=== PATIENT | female | born 1970 | race African-American/Black ===

== ENCOUNTER 2016-08-25 22:32 | Emergency (ER) | payer BC, OTHER ==
[~2016-08-25] VITALS: Ht 177.8 cm; Wt 125.0 kg
[~2016-08-25 22:32] MED LIST: Z.0.NO CURRENT MEDS
[2016-08-25 22:34] VITALS: BP 185/90; PULSE 71; RESP 18; TEMP 97.8; O2SAT 99
[2016-08-25] MEDS ORDERED: ULTR50TA5 PO (23:10)
[2016-08-25] MEDS ORDERED: ROBA750T PO (23:10)
[2016-08-25] MEDS ORDERED: DICL75TA PO (23:10)
--- NOTE | 2016-08-25 23:18 | PD ---
HPI Chief Complaint: Back/ Neck Pain or Injury Time Seen by Provider: 23:10 Travel History International Travel<30 days: No Contact w/Intl Traveler<30days: No Traveled to known affect area: No History of Present Illness HPI 46-year-old black female presents to emergency department with complains of lower back pain with left sciatica the past month. She states that she has had this in the past but is been more intense. She was seen by her doctor initially at the time of the pain. She states that she was given 2 injections and prescriptions for pain medications and Neurontin. She was given a two-week trial of physical therapy which has not helped her pain. She had talked to her doctor and he advised her that she may need to get an MRI. The patient presents to the ER because of persistent pain. She states the pain radiates from her left lower back into her left leg into the knee as well as the foot. It's worse with bending and movement. Some relief with remaining still. She denies any acute bowel or bladder changes. She states the pain is moderate but can be more severe with certain movements such as bending or standing. No palliative activity. PFSH Past Medical History Narrative Medical Back pain with sciatica Cardiovascular Problems: No Diabetes: No Diminished Hearing: No Tetanus Vaccination: < 5 Years ?: Not LMP: TUBAL Tubal Ligation: Yes Past Surgical History Narrative Surgical tUBAL LIGATION Social History Alcohol Use: No Tobacco Use: No Substance Use: No Allergies-Medications (Allergen,Severity, Reaction): Coded Allergies: No Known Allergies (Verified , 08/25/16) Reported Meds & Prescriptions Reported Meds & Active Scripts Active Reported No Current Meds (Miscellaneous Medication) Misc Review of Systems Except as stated in HPI: all other systems reviewed are Neg General / Constitutional: No: Fever, Chills Eyes: No: Diploplia, Blurred Vision HENT: No: Headaches, Vertigo Cardiovascular: No: Chest Pain or Discomfort, Palpitations Respiratory: No: Cough, Shortness of Breath Gastrointestinal: No: Nausea, Vomiting Genitourinary: No: Urgency, Dysuria Musculoskeletal: Positive: Arthralgias, Limited ROM, Pain, No: Weakness Skin: No Rash Neurologic: Positive: Paresthesia (into the left leg), No: Weakness Physical Exam Narrative GENERAL: Well-developed, well-nourished in no apparent distress. Nontoxic appearing. HEAD: Normocephalic, atraumatic. EYES: Pupils equal round and reactive. Extraocular motions intact. No scleral icterus. No injection or drainage. ENT: Nose clear. Throat without erythema, tonsillar hypertrophy or exudate. Uvula midline. Airway patent. NECK: Trachea midline. Supple, nontender, moves head freely. No central bony tenderness or spasm. CARDIOVASCULAR: Regular rate and rhythm without murmurs, gallops, or rubs. RESPIRATORY: Clear to auscultation. Breath sounds equal bilaterally. No wheezes , rales, or rhonchi. GASTROINTESTINAL: Abdomen soft, non-tender, nondistended. No hepato-splenomegaly , or palpable masses. No guarding. EXTREMITIES: No clubbing, cyanosis, or edema. No joint tenderness. BACK: No central bony tenderness without deformity. No flank tenderness. Positive straight leg raise on the left at 70. No saddle anesthesia. Tenderness in the left lower lumbar spine. Good distal pulses. Intact gross sensation. NEUROLOGICAL: Awake, alert and oriented x 3 .Cranial nerves grossly intact. Motor and sensory grossly within normal limits. Normal speech. Data Data Last Documented VS Vital Signs Date Time Temp Pulse Resp B/P Pulse Ox O2 Delivery O2 Flow Rate FiO2 08/25/16 22:34 97.8 71 18 185/90 99 MDM Medical Decision Making Medical Screen Exam Complete: Yes Emergency Medical Condition: Yes Medical Record Reviewed: Yes Differential Diagnosis MDM: High Differential diagnoses: AAA,Fracture, sprain, strain, HNP, nerve or vascular injury, epidural abscess, pilonidal cyst, pyelonephritis, UTI, nephrolithiasis, ureterolithiasis Narrative Course Patient's given Lortab 5 mg and Motrin 800 mg by mouth. This is back pain with sciatica Diagnosis Primary Impression: Back pain with left-sided sciatica Patient Instructions: Narcotic given in the ED, General Instructions Additional Instructions: Rest. Ice for the next 3 days followed by heat . Ultram, Robaxin and Voltaren. Follow-up with a primary care doctor in 3-7 days. Consider MRI and pain management Return to the ER for emergencies. Med/Other Pt SpecificInfo: Prescription(s) given Scripts Tramadol (Ultram)50 Mg [id number] Mg PO Q6H PRN (PAIN) #30 TAB Prov:Martinez,Andrea J MD 08/25/16 Methocarbamol (Robaxin)750 Mg Tab1,500 Mg PO TID 10 Days Prov:Andrea Martinez MD 08/25/[address] 75 Mg Tabdr75 Mg PO BID #30 TAB Prov:Andrea Martinez MD 08/25/16 Disposition: 01 DISCHARGE HOME Condition: Stable Raúl Ac Aug 25, 2016 23:18
[2016-08-25] MEDS ORDERED: IBUPROFEN 800 MG TAB PO ONE (23:30)
[2016-08-25] MEDS ORDERED: ACETAMINOPHEN/HYDROcodone 325 MG/5 MG TAB PO ONE (23:30)
== END 2016-08-25 23:48 | disposition home or self-care (01) ==
LOC: NEPB 22:32
DX: M54.42 Lumbago with sciatica, left side (principal)
CPT/HCPCS: 99283